=== PATIENT | female | born 1960 | race Caucasian/White ===

== ENCOUNTER 2019-05-09 12:27 | Emergency (ER) | payer SELFPAY ==
--- NOTE | 2019-05-09 13:07 | EDM.PDOC ---
ED HPI GENERAL MEDICAL PROBLEM - General Chief Complaint: Respiratory Problem Stated Complaint: [facility] [place] Time Seen by Provider: 05/09/19 12:55 Source of Information: Reports: Patient History Limitations: Reports: No Limitations - History of Present Illness INITIAL COMMENTS - FREE TEXT/NARRATIVE: 59-year-old female, non-smoker, arrives with a cough for the past 2 weeks. She has not been traveling or been exposed to any coronavirus positive patients in the past several weeks. She feels like she is running intermittent fevers, cough is nonproductive. She called her insurance company today and they told her to come to the emergency room. No nausea or vomiting, minimal headache, denies sore throat or upper respiratory symptoms. Onset: Gradual Duration: Week(s): (2 weeks) Associated Symptoms: Reports: Cough, Fever/Chills, Malaise, Shortness of Breath - Related Data Allergies Allergy/AdvReac Type Severity Reaction Status Date / Time aspirin Allergy Hives Verified 05/09/19 12:35 cocoa butter Allergy Hives Verified 05/09/19 12:35 Home Meds: Home Meds Levothyroxine Sodium 1 tab PO DAILY 05/09/19 [History] Pantoprazole [ProTONIX] 1 tab PO DAILY 05/09/19 [History] Sertraline HCl 1 tab PO DAILY 05/09/19 [History] Past Medical History - Past Surgical History GI Surgical History: Reports: Colonoscopy Female Surgical History: Reports: Tubal Ligation Social & Family History - Tobacco Use Smoking Status *Q: Never Smoker ED ROS GENERAL - Review of Systems Review Of Systems: See Below Constitutional: Reports: Fever, Chills, Malaise HEENT: Denies: Ear Pain, Eye Pain, Throat Pain Respiratory: Reports: Shortness of Breath, Cough. Denies: Sputum Cardiovascular: Denies: Chest Pain GI/Abdominal: Denies: Nausea, Vomiting Skin: Reports: No Symptoms Neurological: Reports: Headache (Intermittent) ED EXAM, GENERAL - Physical Exam Exam: See Below Exam Limited By: No Limitations General Appearance: Alert, No Apparent Distress Head: Atraumatic Respiratory/Chest: No Respiratory Distress, Lungs Clear, Other (Patient has a persistent dry cough but lung sounds are normal) Cardiovascular: Regular Rate, Rhythm Neurological: Alert, Oriented Psychiatric: Normal Affect, Normal Mood Skin Exam: Warm, Dry Course - Vital Signs Last Recorded V/S: Last Vital Signs Temp 98.0 F 05/09/19 12:43 Pulse 89 05/09/19 12:43 Resp 14 05/09/19 12:43 BP 149/87 H 05/09/19 12:43 Pulse Ox 98 05/09/19 12:43 - Orders/Labs/Meds Orders: Active Orders 24 hr Category Date Time Status Isolation [COMM] Routine Oth 05/09/19 12:46 Ordered - Re-Assessments/Exams Free Text/Narrative Re-Assessment/Exam: 05/09/19 13:06 Influenza antigens were obtained. Patient did not receive influenza vaccine earlier this season. 05/09/19 13:36 Influenza's were negative. Patient will be placed on a course of Zithromax because of the 2 weeks of symptoms, and given benzonatate for cough suppression. Recheck next week if not improving satisfactorily. Departure - Departure Time of Disposition: 14:05 Disposition: Home, Self-Care 01 Clinical Impression: Bronchitis - Discharge Information Instructions: Acute Bronchitis, Adult, [id number] Referrals: PCP,None [Primary Care Provider] - Forms: ED Department Discharge Care Plan Goals: Take antibiotic as prescribed through the weekend, stay home for the next 4 to 5 days and use cough suppression as prescribed. Increase activity as tolerated and recheck next week if not improving satisfactorily. Sepsis Event Note - Evaluation Sepsis Screening Result: No Definite Risk - Focused Exam Vital Signs: Vital Signs Temp Pulse Resp BP Pulse Ox 05/09/19 12:43 98.0 F 89 14 149/87 H 98 Date Exam was Performed: 05/09/19 Time Exam was Performed: 14:49 - My Orders Last 24 Hours: My Active Orders 05/09/19 12:46 Isolation [COMM] Routine - Assessment/Plan Last 24 Hours: My Active Orders 05/09/19 12:46 Isolation [COMM] Routine
== END 2019-05-09 14:06 | disposition home or self-care (01) ==
LOC: JP.ED 12:27
DX: J40 Bronchitis, not specified as acute or chronic (principal); Z88.8 Allergy status to other drugs, medicaments and biological substances; Z91.013 Allergy to seafood
CPT/HCPCS: 87804; 87804-59; 99284

== ENCOUNTER 2020-02-27 18:41 | Emergency (ER) | payer OTHER ==
[2020-02-27] MEDS ORDERED: Sodium Chloride 0.9% 10 ML Syringe FLUSH PRN (18:42)
--- NOTE | 2020-02-27 19:01 | EDM.PDOC ---
ED HPI GENERAL MEDICAL PROBLEM - General Chief Complaint: Neuro Symptoms/Deficits Stated Complaint: MEDICAL [facility]IA [place] Time Seen by Provider: 02/27/20 18:42 Source of Information: Reports: Patient, EMS History Limitations: Reports: No Limitations - History of Present Illness INITIAL COMMENTS - FREE TEXT/NARRATIVE: Romy is a 59-year-old female presenting to the ED via [facility] for evaluation of dizziness, headache, and hallucinations. The patient was in her usual state of health and was last known well at 9 PM last evening when she went to bed. She woke up around 2300 hrs. to use the restroom and that was when she first noticed that she had some gait instability and dizziness. She did go back to bed and then this morning got up and walked to work. She had some difficulty with that task and throughout the course of the day has had worsening headache, dizziness, and hallucinations.. The patient states the hallucinations were like the ceiling fan throwing things against the wall and streaks of colors across the ceiling like blue, pink, and red. She at one point saw "a creepy david that was not there". The dizziness is to the point where she is very ataxic and is complaining of a significant headache. She denies any vomiting, but has had significant nausea which is why she has not ate or drink anything today. She denies any fever or chills. She has had no cough or shortness of breath. She does have some general body aches. He denies any history of headaches. I reviewed the medical records from [facility] and the patient has a past medical history significant for hypothyroidism, depression, nicotine dependence, anxiety, neurofibromatosis, otosclerosis with conductive hearing loss unilaterally, and reflux disease. Headache Pain Score (Numeric/FACES): 7 - Related Data Allergies Allergy/AdvReac Type Severity Reaction Status Date / Time aspirin Allergy Hives Verified 05/09/19 12:35 cocoa butter Allergy Hives Verified 05/09/19 12:35 Home Meds: Home Meds Levothyroxine Sodium 137 mcg PO DAILY 05/09/19 [History] Pantoprazole [ProTONIX] 40 mg PO DAILY 05/09/19 [History] Sertraline HCl 100 mg PO DAILY 05/09/19 [History] Melatonin 10 mg PO BEDTIME 02/27/20 [History] Past Medical History Psychiatric History: Reports: Depression Endocrine/Metabolic History: Reports: Hypothyroidism - Past Surgical History GI Surgical History: Reports: Colonoscopy Female Surgical History: Reports: Tubal Ligation ED ROS GENERAL - Review of Systems Review Of Systems: See Below Constitutional: Reports: Weakness, Decreased Appetite HEENT: Reports: Other (Photophobia) Respiratory: Reports: No Symptoms Cardiovascular: Reports: Blood Pressure Problem (EMS noted she had a very elevated blood pressure upon their arrival at 168/100.), Lightheadedness Endocrine: Reports: No Symptoms GI/Abdominal: Reports: Decreased Appetite, Nausea : Reports: No Symptoms Musculoskeletal: Reports: Muscle Pain (Scattered muscle pain) Skin: Reports: No Symptoms Neurological: Reports: Dizziness, Headache, Tremors, Difficulty Walking, Gait Disturbance Psychiatric: Reports: Anxiety Hematologic/Lymphatic: Reports: No Symptoms Immunologic: Reports: No Symptoms ED EXAM, NEURO - Physical Exam Exam: See Below Exam Limited By: No Limitations General Appearance: Alert, Anxious, Mild Distress Eye Exam: Bilateral Eye: EOMI, PERRL Ears: Normal External Exam, Normal Canal, Normal TMs Nose: Normal Inspection, Normal Mucosa Throat/Mouth: Normal Inspection, Normal Lips, Normal Oropharynx, Other (Poor dentition) Head Exam: Atraumatic, Normocephalic Neck: Normal Inspection, Supple, Non-Tender, Full Range of Motion. No: Carotid Bruit, Lymphadenopathy (R), Lymphadenopathy (L) Respiratory/Chest: No Respiratory Distress, Lungs Clear, Normal Breath Sounds, Chest Non-Tender Cardiovascular: Normal Peripheral Pulses, Regular Rate, Rhythm, No JVD, No Murmur GI/Abdominal: Normal Bowel Sounds, Soft, Non-Tender, No Distention. No: Guarding, Rigid, Rebound Neurological: Alert, Normal Mood/Affect, Normal Dorsiflexion, CN II-XII Intact, Normal Plantar Flexion, Normal Reflexes, No Motor/Sensory Deficits, Oriented x 3, Abnormal Gait, Ataxia, Tremor Back Exam: Normal Inspection, Full Range of Motion Extremities: Normal Range of Motion, Non-Tender, No Pedal Edema, Other (Bruises around the knees varying discoloration.) Psychiatric: Anxious, Other (Visual hallucinations while in the room.) Skin Exam: Warm, Dry, Intact, No Rash, Ecchymosis *Q Meaningful Use (ADM) - Stroke *Q Aspirin Contraindications Stroke *Q: Other (Use Special Inst) (This is not a stroke.) Course - Vital Signs Last Recorded V/S: Last Vital Signs Temp 35.7 C L 02/27/20 18:47 Pulse 95 02/27/20 22:13 Resp 18 02/27/20 18:47 BP 145/81 H 02/27/20 22:13 Pulse Ox 97 02/27/20 21:44 - Orders/Labs/Meds Orders: Active Orders 24 hr Category Date Time Status Abdomen Ltd [US] Stat Exams 02/27/20 20:29 Taken Sodium Chloride 0.9% [Saline Flush] Med 02/27/20 18:42 Active 10 ml FLUSH ASDIRECTED PRN Saline Lock Insert [OM.PC] Routine Oth 02/27/20 18:42 Ordered Medication Orders Sodium Chloride (Saline Flush) 10 ml FLUSH ASDIRECTED PRN PRN Reason: Keep Vein Open Last Admin: 02/27/20 19:01 Dose: 10 ml Documented by: [id number] Labs: Laboratory Tests 02/27/20 02/27/20 02/27/20 Range/Units 19:00 19:00 19:00 WBC 6.8 (4.5-11.0) K/uL RBC 4.02 (3.30-5.50) M/uL Hgb 10.9 L (12.0-15.0) g/dL Hct 34.9 L (36.0-48.0) % MCV 87 (80-98) fL MCH 27 (27-31) pg MCHC 31 L (32-36) % Plt Count 231 (150-400) K/uL Neut % (Auto) 86 H (36-66) % Lymph % (Auto) 10 L (24-44) % [place] % (Auto) 4 (2-6) % Eos % (Auto) 0 L (2-4) % Baso % (Auto) 0 (0-1) % PT 11.6 (9.5-12.0) sec INR 1.07 (0.80-1.20) APTT 32.8 (27.0-36.0) sec Sodium 134 L (140-148) mmol/L Potassium 3.4 L (3.6-5.2) mmol/L Chloride 100 (100-108) mmol/L Carbon Dioxide 21 (21-32) mmol/L Anion Gap 16.4 H (5.0-14.0) mmol/L BUN 16 (7-18) mg/dL Creatinine 0.8 (0.6-1.0) mg/dL Est Cr Clr Drug Dosing 53.04 mL/min Estimated GFR (MDRD) > 60 (>60) Glucose 97 (74-106) mg/dL Calcium 8.7 (8.5-10.1) mg/dL Total Bilirubin 1.4 H (0.2-1.0) mg/dL AST 434 H (15-37) U/L ALT 122 H (12-78) U/L Alkaline Phosphatase 69 (46-116) U/L Ammonia (11-32) mmol/L C-Reactive Protein 0.06 (0.0-0.3) mg/dL Total Protein 8.1 (6.4-8.2) g/dL Albumin 3.3 L (3.4-5.0) g/dL Globulin 4.8 H (2.3-3.5) g/dL Albumin/Globulin Ratio 0.7 L (1.2-2.2) Lipase (73-393) U/L TSH, Ultra Sensitive (0.358-3.740) uIU/mL Urine Color (YELLOW) Urine Appearance (CLEAR) Urine pH (5.0-8.0) Ur Specific [place] (1.008-1.030) Urine Protein (NEGATIVE) mg/dL Urine Glucose (UA) (NEGATIVE) mg/dL Urine Ketones (NEGATIVE) mg/dL Urine Occult Blood (NEGATIVE) Urine Nitrite (NEGATIVE) Urine Bilirubin (NEGATIVE) Urine Urobilinogen (0.2-1.0) EU/dL Ur Leukocyte Esterase (NEGATIVE) Urine RBC (0-5) Urine WBC (0-5) Ur Epithelial Cells Amorphous Sediment Urine Bacteria Urine Mucus Urine Opiates Screen (NEGATIVE) Ur Oxycodone Screen (NEGATIVE) Urine Methadone Screen (NEGATIVE) Ur Propoxyphene Screen (NEGATIVE) Ur Barbiturates Screen (NEGATIVE) Ur Tricyclics Screen (NEGATIVE) Ur Phencyclidine Scrn (NEGATIVE) Ur Amphetamine Screen (NEGATIVE) U Methamphetamines Scrn (NEGATIVE) Urine MDMA Screen (NEGATIVE) U Benzodiazepines Scrn (NEGATIVE) U Cocaine Metab Screen (NEGATIVE) U Marijuana (THC) Screen (NEGATIVE) Influenza Type A RNA (NEGATIVE) Influenza Type B RNA (NEGATIVE) RSV Rapid (NEGATIVE) SARS-CoV-2 RNA (RIGOBERTO) (NEGATIVE) 02/27/20 02/27/20 02/27/20 Range/Units 19:00 20:15 20:15 WBC (4.5-11.0) K/uL RBC (3.30-5.50) M/uL Hgb (12.0-15.0) g/dL Hct (36.0-48.0) % MCV (80-98) fL MCH (27-31) pg MCHC (32-36) % Plt Count (150-400) K/uL Neut % (Auto) (36-66) % Lymph % (Auto) (24-44) % [place] % (Auto) (2-6) % Eos % (Auto) (2-4) % Baso % (Auto) (0-1) % PT (9.5-12.0) sec INR (0.80-1.20) APTT (27.0-36.0) sec Sodium (140-148) mmol/L Potassium (3.6-5.2) mmol/L Chloride (100-108) mmol/L Carbon Dioxide (21-32) mmol/L Anion Gap (5.0-14.0) mmol/L BUN (7-18) mg/dL Creatinine (0.6-1.0) mg/dL Est Cr Clr Drug Dosing mL/min Estimated GFR (MDRD) (>60) Glucose (74-106) mg/dL Calcium (8.5-10.1) mg/dL Total Bilirubin (0.2-1.0) mg/dL AST (15-37) U/L ALT (12-78) U/L Alkaline Phosphatase (46-116) U/L Ammonia (11-32) mmol/L C-Reactive Protein (0.0-0.3) mg/dL Total Protein (6.4-8.2) g/dL Albumin (3.4-5.0) g/dL Globulin (2.3-3.5) g/dL Albumin/Globulin Ratio (1.2-2.2) Lipase (73-393) U/L TSH, Ultra Sensitive 29.428 H (0.358-3.740) uIU/mL Urine Color Yellow (YELLOW) Urine Appearance Clear (CLEAR) Urine pH 6.0 (5.0-8.0) Ur Specific [place] 1.015 (1.008-1.030) Urine Protein Negative (NEGATIVE) mg/dL Urine Glucose (UA) Negative (NEGATIVE) mg/dL Urine Ketones Trace H (NEGATIVE) mg/dL Urine Occult Blood Negative (NEGATIVE) Urine Nitrite Negative (NEGATIVE) Urine Bilirubin Negative (NEGATIVE) Urine Urobilinogen 0.2 (0.2-1.0) EU/dL Ur Leukocyte Esterase Negative (NEGATIVE) Urine RBC Not seen (0-5) Urine WBC 0-5 (0-5) Ur Epithelial Cells Few Amorphous Sediment Not seen Urine Bacteria Rare Urine Mucus Not seen Urine Opiates Screen Negative (NEGATIVE) Ur Oxycodone Screen Negative (NEGATIVE) Urine Methadone Screen Negative (NEGATIVE) Ur Propoxyphene Screen Negative (NEGATIVE) Ur Barbiturates Screen Negative (NEGATIVE) Ur Tricyclics Screen Presumptive positive H (NEGATIVE) Ur Phencyclidine Scrn Negative (NEGATIVE) Ur Amphetamine Screen Negative (NEGATIVE) U Methamphetamines Scrn Negative (NEGATIVE) Urine MDMA Screen Negative (NEGATIVE) U Benzodiazepines Scrn Negative (NEGATIVE) U Cocaine Metab Screen Negative (NEGATIVE) U Marijuana (THC) Screen Negative (NEGATIVE) Influenza Type A RNA (NEGATIVE) Influenza Type B RNA (NEGATIVE) RSV Rapid (NEGATIVE) SARS-CoV-2 RNA (RIGOBERTO) (NEGATIVE) 02/27/20 02/27/20 02/27/20 Range/Units 20:29 20:52 21:18 WBC (4.5-11.0) K/uL RBC (3.30-5.50) M/uL Hgb (12.0-15.0) g/dL Hct (36.0-48.0) % MCV (80-98) fL MCH (27-31) pg MCHC (32-36) % Plt Count (150-400) K/uL Neut % (Auto) (36-66) % Lymph % (Auto) (24-44) % [place] % (Auto) (2-6) % Eos % (Auto) (2-4) % Baso % (Auto) (0-1) % PT (9.5-12.0) sec INR (0.80-1.20) APTT (27.0-36.0) sec Sodium (140-148) mmol/L Potassium (3.6-5.2) mmol/L Chloride (100-108) mmol/L Carbon Dioxide (21-32) mmol/L Anion Gap (5.0-14.0) mmol/L BUN (7-18) mg/dL Creatinine (0.6-1.0) mg/dL Est Cr Clr Drug Dosing mL/min Estimated GFR (MDRD) (>60) Glucose (74-106) mg/dL Calcium (8.5-10.1) mg/dL Total Bilirubin (0.2-1.0) mg/dL AST (15-37) U/L ALT (12-78) U/L Alkaline Phosphatase (46-116) U/L Ammonia 14 (11-32) mmol/L C-Reactive Protein (0.0-0.3) mg/dL Total Protein (6.4-8.2) g/dL Albumin (3.4-5.0) g/dL Globulin (2.3-3.5) g/dL Albumin/Globulin Ratio (1.2-2.2) Lipase 277 (73-393) U/L TSH, Ultra Sensitive (0.358-3.740) uIU/mL Urine Color (YELLOW) Urine Appearance (CLEAR) Urine pH (5.0-8.0) Ur Specific [place] (1.008-1.030) Urine Protein (NEGATIVE) mg/dL Urine Glucose (UA) (NEGATIVE) mg/dL Urine Ketones (NEGATIVE) mg/dL Urine Occult Blood (NEGATIVE) Urine Nitrite (NEGATIVE) Urine Bilirubin (NEGATIVE) Urine Urobilinogen (0.2-1.0) EU/dL Ur Leukocyte Esterase (NEGATIVE) Urine RBC (0-5) Urine WBC (0-5) Ur Epithelial Cells Amorphous Sediment Urine Bacteria Urine Mucus Urine Opiates Screen (NEGATIVE) Ur Oxycodone Screen (NEGATIVE) Urine Methadone Screen (NEGATIVE) Ur Propoxyphene Screen (NEGATIVE) Ur Barbiturates Screen (NEGATIVE) Ur Tricyclics Screen (NEGATIVE) Ur Phencyclidine Scrn (NEGATIVE) Ur Amphetamine Screen (NEGATIVE) U Methamphetamines Scrn (NEGATIVE) Urine MDMA Screen (NEGATIVE) U Benzodiazepines Scrn (NEGATIVE) U Cocaine Metab Screen (NEGATIVE) U Marijuana (THC) Screen (NEGATIVE) Influenza Type A RNA Negative (NEGATIVE) Influenza Type B RNA Negative (NEGATIVE) RSV Rapid Negative (NEGATIVE) SARS-CoV-2 RNA (RIGOBERTO) Negative (NEGATIVE) Meds: Medications Generic Name Dose Route Start Last Admin Trade Name Frefang PRN Reason Stop Dose Admin Sodium Chloride 10 ml 02/27/20 18:42 02/27/20 19:01 Saline Flush FLUSH 10 ml ASDIRECTED PRN Administration Keep Vein Open Discontinued Medications Generic Name Dose Route Start Last Admin Trade Name Frefang PRN Reason Stop Dose Admin Sodium Chloride 1,000 mls @ 999 mls/hr 02/27/20 19:13 02/27/20 19:17 Normal Saline IV 02/27/20 20:13 999 mls/hr .BOLUS ONE Administration - Re-Assessments/Exams Free Text/Narrative Re-Assessment/Exam: 02/27/20 22:33 I reviewed the presenting complaints, symptoms, findings of my examination, and results of imaging and labs with Dr. Roth, hospitalist from [facility] who accepts the patient in transfer for further work-up and admission. He would like the patient to go through the [facility] ER for immediate imaging with MRI of the brain with the concern that the patient may have a ventricular outflow obstruction due to her neurofibromatosis. I discussed the case with the ER attending who is awaiting the patient. This information was also discussed with Oj, the patient's to update him on the situation. Departure - Departure Time of Disposition: 22:35 Disposition: DC/Tfer to Other Clinical Impression: Neurofibromatosis, Visual hallucinations, Ataxia Acute headache Qualifiers: Headache type: unspecified Intractability: intractable Qualified Code(s): R51.9 - Headache, unspecified - Discharge Information Referrals: PCP,None [Primary Care Provider] - Forms: ED Department Discharge Care Plan Goals: The plan is to transfer the patient for admission to [facility] for further work-up including an emergent MRI to evaluate for possible ventricular outflow obstruction due to the neurofibromatosis. [facility] will provide transportation to [facility]. Sepsis Event Note (ED) - Evaluation Sepsis Screening Result: No Definite Risk - Focused Exam Vital Signs: Vital Signs Temp Pulse Resp BP Pulse Ox 02/27/20 22:13 95 145/81 H 02/27/20 21:44 95 149/83 H 97 02/27/20 20:22 99 158/78 H 98 02/27/20 19:44 100 149/85 H 97 02/27/20 18:47 35.7 C L 114 H 18 182/102 H 96 02/27/20 18:43 35.7 C L 114 H 18 182/102 H 96 - My Orders Last 24 Hours: My Active Orders 02/27/20 18:42 Sodium Chloride 0.9% [Saline Flush] 10 ml FLUSH ASDIRECTED PRN Saline Lock Insert [OM.PC] Routine 02/27/20 20:29 Abdomen Ltd [US] Stat - Assessment/Plan Last 24 Hours: My Active Orders 02/27/20 18:42 Sodium Chloride 0.9% [Saline Flush] 10 ml FLUSH ASDIRECTED PRN Saline Lock Insert [OM.PC] Routine 02/27/20 20:29 Abdomen Ltd [US] Stat
[2020-02-27] MEDS ORDERED: Sodium Chloride 0.9% 1,000 ML IV ONE (19:13)
--- NOTE | 2020-02-27 19:28 | CRLCT ---
Indication: Hallucinations Technique: Noncontrast head CT Comparison: No comparison Findings: Generalized mild parenchymal volume loss. No acute intracranial hemorrhage or mass. No midline shift. No abnormal extra-axial air fluid collections are seen. Paranasal sinuses, mastoid air cells skull and scalp appear unremarkable aside mucosal thickening and small amount fluid in the left sphenoid sinus. Impression: 1. No acute intracranial hemorrhage or mass. 2. Left sphenoid sinus disease. Please note that all CT scans at this facility use dose modulation, iterative reconstruction, and/or weight-based dosing when appropriate to reduce radiation dose to as low as reasonably achievable. Dictated by Ailyn Bryant MD @ Feb 27 2020 7:23PM Signed by Dr. Ailyn Bryant @ Feb 27 2020 7:26PM
[2020-02-27 22:00] LABS: CORONAVIRUS COVID-19 NAA NEGATIVE (NEGATIVE)
--- NOTE | 2020-02-28 10:19 | US ---
Abdomen Ltd CLINICAL HISTORY: Elevated bilirubin and liver enzymes COMPARISON: None. TECHNIQUE: Real-time images were obtained through the right upper quadrant. FINDINGS: The liver is free of mass or biliary dilatation. There is increased hepatic echogenicity with beam drop-off. The gallbladder has a normal appearance. The common bile duct measures 6 mm. The pancreas is obscured. The right kidney has a normal appearance. The IVC is normal. IMPRESSION: Diffuse fatty infiltration throughout the liver Common bile duct measures upper limits of normal
== END 2020-02-27 23:00 | disposition other institution (70) ==
LOC: JP.ED 18:41
DX: R44.1 Visual hallucinations (principal); R51.9 Headache, unspecified; Q85.00 Neurofibromatosis, unspecified; R27.0 Ataxia, unspecified; F32.9 Major depressive disorder, single episode, unspecified; F41.9 Anxiety disorder, unspecified; E03.9 Hypothyroidism, unspecified; F17.200 Nicotine dependence, unspecified, uncomplicated; Z88.6 Allergy status to analgesic agent; Z91.018 Allergy to other foods; Z20.822 Contact with and (suspected) exposure to COVID-19
CPT/HCPCS: 0241U; 36415; 70450; 76705; 80053; 80305; 81001; 82140; 83690; 84443; 85025; 85610; 85730; 86140; 99285; J7030

== ENCOUNTER 2022-01-09 11:33 | Emergency (ER) | payer SELFPAY ==
[2022-01-09] MEDS ORDERED: Sodium Chloride 0.9% 10 ML Syringe FLUSH PRN (11:40)
[2022-01-09] MEDS ORDERED: Dextrose 5%-Lactated Ringers 1,000 ML IV SCH (11:45)
[2022-01-09] MEDS ORDERED: 50% Dextrose in Water 50 ML Syringe IVPUSH ONE (12:26)
[2022-01-09 12:27] LABS: ESTIMATED GFR 26 mL/min (>60)
[2022-01-09] MEDS ORDERED: Thiamine 100 MG Tab PO ONE (12:30)
[2022-01-09] MEDS ORDERED: Lactated Ringers 1,000 ML IV SCH ×2 (12:30→14:45)
[2022-01-09] MEDS ORDERED: Potassium Chloride 20 MEQ Tab.ER PO ONE (12:32)
[2022-01-09 12:45] LABS: TROPONIN I HIGH SENSITIVITY 16.6 pg/mL (<=60.3)
[2022-01-09] MEDS: Potassium Chloride 20 MEQ in Premix Bag 1 BAG IV SCH ×2 (12:58→14:56)
[2022-01-09 13:02] LABS: CORONAVIRUS COVID-19 NAA NEGATIVE (NEGATIVE)
[2022-01-09] MEDS ORDERED: Piperacillin/Tazobactam 3.375 GM in Sodium Chloride 0.9% 50 ML IV ONE (14:26)
[2022-01-09] MEDS ORDERED: Piperacillin/Tazobactam 2.25 GM in Sodium Chloride 0.9% 50 ML IV ONE (14:28)
== END 2022-01-09 20:03 ==
LOC: JP.ED 11:33
DX: S01.81XA Laceration without foreign body of other part of head, initial encounter (principal); S00.83XA Contusion of other part of head, initial encounter; S40.012A Contusion of left shoulder, initial encounter; T68.XXXA Hypothermia, initial encounter; D64.9 Anemia, unspecified; K72.00 Acute and subacute hepatic failure without coma; K00.7 Teething syndrome; I48.92 Unspecified atrial flutter; E87.6 Hypokalemia; B19.20 Unspecified viral hepatitis C without hepatic coma; K74.60 Unspecified cirrhosis of liver; R55 Syncope and collapse; K21.9 Gastro-esophageal reflux disease without esophagitis; E03.9 Hypothyroidism, unspecified; Z79.01 Long term (current) use of anticoagulants; Z87.891 Personal history of nicotine dependence; Z88.8 Allergy status to other drugs, medicaments and biological substances; Z91.018 Allergy to other foods; Z79.899 Other long term (current) drug therapy; Z20.822 Contact with and (suspected) exposure to COVID-19; W18.30XA Fall on same level, unspecified, initial encounter
CPT/HCPCS: 0241U; 36415; 36430; 70450; 71250; 73030-26-LT; 73030-LT; 74176; 80048; 80053; 80305-QW; 80307; 81001; 82140; 82550; 82803; 82947; 83605; 83735; 84145; 84439; 84443; 84484; 85014; 85018; 85025; 85379; 85610; 85730; 86140; 86850; 86900; 86901; 86920; 86922; 87040; 87086; 93005; 96361; 96365; 96366; 96368; 96375; 99285-25; A9270-GY; J2543; J3480; J3490; J7120; J7121; P9016

== ENCOUNTER 2023-11-27 13:06 | Emergency (ER) | payer MEDICARE ==
[2023-11-27] MEDS: Succinylcholine 200 MG/10 ML MDV IV ONE (14:20)
[2023-11-27] MEDS: EPINEPHrine 1:10,000 1 MG/10 ML Syringe IV ONE ×5 (14:24→16:38)
[2023-11-27 14:25] LABS: HEMATOCRIT 49.6 % (34.3-46.0); HEMOGLOBIN 17.6 g/dL (11.2-15.5); IMMATURE GRAN ABSOLUTE AUTO 0.64 K/uL (0.00-0.23); IMMATURE GRAN PERCENT AUTO 1.6 % (0.0-0.7); LYMPHOCYTES ABSOLUTE AUTO 0.93 K/uL (0.8-3.3); LYMPHOCYTES PERCENT AUTO 2.3 % (11.4-47.7); MEAN CORPUSCULAR HEMOGLOBIN 35.3 pg (31.6-35.5); MEAN CORPUSCULAR HGB CONC 35.5 g/dL (31.6-35.5); MEAN CORPUSCULAR VOLUME 99.4 fL (81.4-99.0); MONOCYTES ABSOLUTE AUTO 2.22 K/uL (0.20-0.90); MONOCYTES PERCENT AUTO 5.6 % (3.3-12.6); NEUTROPHILS PERCENT AUTO 90.5 % (40.0-78.1); RED BLOOD CELL COUNT 4.99 M/uL (3.77-5.24)
[2023-11-27] MEDS: Sodium Chloride 0.9% 1,000 ML IV ONE (14:26)
[2023-11-27 14:36] LABS: APPEARANCE,URINE TURBID (CLEAR); BILIRUBIN,URINE MODERATE (NEGATIVE); COLOR,URINE BROWN (YELLOW); GLUCOSE,URINE NEGATIVE (NEGATIVE); KETONES,URINE NEGATIVE (NEGATIVE); LEUKOCYTE ESTERASE,URINE LARGE (NEGATIVE); NITRITE,URINE NEGATIVE (NEGATIVE); OCCULT BLOOD,URINE LARGE (NEGATIVE); PROTEIN,URINE >=300 mg/dL (NEGATIVE); UROBILINOGEN,URINE 0.2 EU/dL (0.2-1.0)
[2023-11-27] MEDS: Norepinephrine Bit/D5W Premix 4 MG in Premix Bag 1 BAG IV SCH ×2 (14:46→14:48)
[2023-11-27] MEDS: Sodium Chloride 0.9% 1,000 ML IV SCH (14:50)
[2023-11-27] MEDS: Ondansetron 4 MG/2 ML SDV IVPUSH ONE (14:51)
[2023-11-27 14:53] LABS: BACTERIA,URINE MANY
[2023-11-27 15:04] LABS: SODIUM,ISTAT 136 mmol/L (140-148)
[2023-11-27 15:05] LABS: BASE EXCESS ARTERIAL,ISTAT -13 mmol/L (-2-3); HCO3 ARTERIAL,ISTAT 17.8 mmol/L (22.0-26.0); HEMATOCRIT,ISTAT 50 % (36-48); PCO2 ARTERIAL,ISTAT 62.7 mmHG (35-45); PO2 ARTERIAL,ISTAT 36 mmHg (80-105); TCO2 ARTERIAL,ISTAT 20 mmol/L (23-27)
[2023-11-27 15:06] LABS: O2 SATURATION ARTERIAL,ISTAT 46 % (95-98)
[2023-11-27 15:09] LABS: CALCIUM IONIZED,ISTAT 0.91 mmol/L (1.12-1.32); PH ARTERIAL,ISTAT 7.06 (7.35-7.45); POTASSIUM,ISTAT 6.7 mmol/L (3.5-4.9)
[2023-11-27 15:12] LABS: WBC,URINE PACKED (0-5)
[2023-11-27 15:14] LABS: AMPHETAMINES SCREEN, URINE NEGATIVE (NEGATIVE); BARBITURATE SCREEN,URINE NEGATIVE (NEGATIVE); BENZODIAZEPINES SCREEN,URINE NEGATIVE (NEGATIVE); METHADONE SCREEN, URINE NEGATIVE (NEGATIVE); METHAMPHETAMINES SCREEN, URINE NEGATIVE (NEGATIVE); OXYCODONE SCREEN,URINE NEGATIVE (NEGATIVE); PROPOXYPHENE SCREEN,URINE NEGATIVE (NEGATIVE); THC SCREEN,URINE 50 NG/ML NEGATIVE (NEGATIVE)
[2023-11-27] MEDS ORDERED: propofoL 100 ML IV SCH (15:15)
[2023-11-27 15:19] LABS: BASOPHILS ABSOLUTE AUTO 0.01 K/uL (0.00-0.10); EOSINOPHILS ABSOLUTE AUTO 0.01 K/uL (0.00-0.40); WHITE BLOOD CELL COUNT,WBC 39.9 K/uL (3.2-11.0)
[2023-11-27 15:20] LABS: PLATELET COUNT,PLT 132 K/uL (130-375)
[2023-11-27] MEDS: Sodium Bicarbonate 8.4% 50 MEQ/50 ML Syringe IVPUSH ONE (15:45)
[2023-11-27] MEDS: Calcium Chloride 10% 1 GM/10 ML Syringe IVPUSH ONE (15:45)
[2023-11-27] MEDS: Rocuronium 50 MG/5 ML Vial IVPUSH ONE (15:45)
[2023-11-27] MEDS: Levofloxacin/Dextrose 5%-Water 500 MG in Premix Bag 1 BAG IV ONE (15:45)
[2023-11-27 16:22] LABS: INR 2.1; PROTHROMBIN TIME 21.2 sec (9.2-10.6)
[2023-11-27 16:43] LABS: A/G RATIO 0.5 (1.2-2.2); ALANINE AMINOTRANSFERASE,ALT 105 U/L (12-78); ALBUMIN 2.3 g/dL (3.4-5.0); ALKALINE PHOSPHATASE 125 U/L (46-116); ASPARTATE AMNIOTRANSFERASE,AST 493 U/L (15-37); BILIRUBIN TOTAL 3.3 mg/dL (0.2-1.0); BLOOD UREA NITROGEN,BUN 51 mg/dL (7-18); CALCIUM 9.4 mg/dL (8.5-10.1); CARBON DIOXIDE,CO2 17 mmol/L (21-32); CHLORIDE,CL 100 mmol/L (100-108); ESTIMATED GFR 13 mL/min (>60); PROTEIN TOTAL,TP 7.2 g/dL (6.4-8.2); SODIUM,NA 139 mmol/L (140-148)
[2023-11-27 16:46] LABS: ANION GAP 29.1 mmol/L (5.0-14.0); POTASSIUM,K 7.1 mmol/L (3.6-5.2)
[2023-11-27 16:47] LABS: CREATININE 3.8 mg/dL (0.6-1.0); GLUCOSE RANDOM 3 mg/dL (74-106)
[2023-11-27 16:55] LABS: BASE EXCESS VENOUS -18.1 mm/L; BICARBONATE,VENOUS 12.5 mmol/L; METHEMOGLOBIN 0.9 %; O2 SATURATION VENOUS 67.2; OXYHEMOGLOBIN 64.6 %; PCO2 VENOUS 44.7 mm/Hg; PH,VENOUS 7.076 (7.350-7.450); PO2 VENOUS 52.7 mm/Hg; TOTAL HEMOGLOBIN 16.3 g/dL (12.0-16.0)
== END 2023-11-27 16:40 | disposition expired ==
LOC: JP.ED 13:06
DX: A41.9 Sepsis, unspecified organism (principal); R65.21 Severe sepsis with septic shock; J96.00 Acute respiratory failure, unspecified whether with hypoxia or hypercapnia; K72.00 Acute and subacute hepatic failure without coma; I46.9 Cardiac arrest, cause unspecified; E87.5 Hyperkalemia; K73.9 Chronic hepatitis, unspecified; K74.60 Unspecified cirrhosis of liver; E03.9 Hypothyroidism, unspecified; K21.9 Gastro-esophageal reflux disease without esophagitis; Z88.6 Allergy status to analgesic agent; Z91.018 Allergy to other foods; Z79.899 Other long term (current) drug therapy
CPT/HCPCS: 31500; 36415; 51702; 70450; 71045; 80053; 80305; 80307; 81001; 82140; 82550; 82803; 83605; 84443; 84484; 85025; 85610; 87040; 87077; 87186; 93005; 93010; 96361; 96365; 96368; 96375; 99285; J0171; J0330; J1956; J2405; J7030; J3490